=== PATIENT | male | born 1950 | race Caucasian/White ===

== ENCOUNTER 2018-07-16 09:58 | Inpatient (IN) | payer MEDICARE, OTHER ==
[2018-07-16] MEDS: ASPIRIN 81 MG TAB PO (10:21)
[2018-07-16 10:22] LABS: WHITE BLOOD COUNT 8.7 10^3/ul (4.8-10.8)
[2018-07-16 10:22] LABS: ADD MAN DIFF? NO; BASOPHILS % 0.1 % (0.0-2.0); EOSINOPHILS % 0.5 % (0.0-7.0); HEMATOCRIT 25.9 % (42.0-52.0); HEMOGLOBIN 8.1 g/dl (14.0-18.0); LYMPHOCYTES % 22.5 % (15.0-51.0); MEAN CORPUSCULAR HEMOGLOBIN 27.5 pg (29.0-33.0); MEAN CORPUSCULAR HGB CONC 31.3 g/dl (32.0-37.0); MEAN CORPUSCULAR VOLUME 87.8 fl (82.0-101.0); MEAN PLATELET VOLUME 9.6 fl (7.4-10.4); MONOCYTE # 0.4 10^3/ul (0.3-0.9); MONOCYTES % 4.3 % (0.0-11.0); NEUTROPHIL # 6.3 10^3/ul (1.6-7.5); PLATELET COUNT 249 10^3/UL (140-415); RED BLOOD COUNT 2.95 10^6/ul (4.70-6.10); RED CELL DISTRIBUTION WIDTH 13.9 % (11.5-14.5)
[2018-07-16 10:38] LABS: ANION GAP 13 (5-13); BLOOD UREA NITROGEN 80 mg/dl (7-20); CALCIUM 7.2 mg/dl (8.4-10.2); CARBON DIOXIDE 12 mmol/L (21-31); CHLORIDE 116 mmol/L (97-110); CREATININE 10.56 mg/dl (0.61-1.24); Estimated GFR 5 mL/min (>60); GLUCOSE 96 mg/dl (70-220); POTASSIUM 5.9 mmol/L (3.5-5.1); SODIUM 141 mmol/L (135-144)
[2018-07-16 10:42] LABS: AADO2 Arterial 43.9 mmHg (7.0-24.0); Arterial Base Excess -15.2 mmol/L (-3.0-3); Arterial Blood Gas Oxygen Sat 93.8 mmHG (95.0-98.0); Arterial Fraction of Oxyhgb 89.8 % (93.0-99.0); Arterial HCO3 10.3 mmol/L (22.0-26.0); Arterial MetHb 0.3 % (0.0-1.5); Arterial pCO2 23.1 mmhg (35-45); MODE ROOM AIR; Site Right Brachial
[2018-07-16 10:53] LABS: TROPONIN-I 0.126 ng/ml (0.000-0.120)
[2018-07-16] MEDS ORDERED: ONDANSETRON 4 MG INJ IV ×2 (11:00→14:00)
[2018-07-16] MEDS ORDERED: ACETAMINOPHEN 325 MG TAB PO ×2 (11:00→14:00)
[2018-07-16] MEDS: NA BICARBONATE 8.4% 50 ML SYG IV (11:19)
[2018-07-16] MEDS: INSULIN REGULAR, HUMAN 100 UNIT/1 ML 3ML VIAL IVP (11:21)
[2018-07-16] MEDS: NA POLYST SULFON 15 GM/60 ML BTL PO (11:21)
[2018-07-16] MEDS: DEXTROSE 50% 50 ML SYRINGE IV (11:23)
[2018-07-16] MEDS: ALBUTEROL 0.5% (NEB) 2.5 MG/0.5 ML AMP INH (11:40)
[2018-07-16] MEDS: HYDROCHLOROTHIAZIDE 25 MG TAB PO (13:56)
[2018-07-16] MEDS ORDERED: NACL 0.9% 3 ML SYG IV (14:00)
[2018-07-16] MEDS ORDERED: HYDROCHLOROTHIAZIDE 50 MG TAB PO (15:00)
[2018-07-16 15:06] LABS: ANION GAP 12 (5-13); BLOOD UREA NITROGEN 81 mg/dl (7-20); CALCIUM 6.9 mg/dl (8.4-10.2); CARBON DIOXIDE 15 mmol/L (21-31); CHLORIDE 115 mmol/L (97-110); CREATININE 10.29 mg/dl (0.61-1.24); Estimated GFR 5 mL/min (>60); GLUCOSE 88 mg/dl (70-220); POTASSIUM 5.4 mmol/L (3.5-5.1); SODIUM 142 mmol/L (135-144)
[2018-07-16 15:17] LABS: TROPONIN-I 0.114 ng/ml (0.000-0.120)
[2018-07-16] MEDS: FELODIPINE (ER) 5 MG TAB PO (15:37)
[2018-07-16 15:41] LABS: HAAIG REFLEX REFLEX FILED
[2018-07-16 16:35] LABS: RHEUMATOID FACTOR NEGATIVE (NEGATIVE)
[2018-07-16 16:37] LABS: IRON 56 ug/dl (35-150)
[2018-07-16 16:41] LABS: HEPATITIS B SURFACE ANTIGEN NEGATIVE (NEGATIVE)
[2018-07-16 16:45] LABS: CREATINE KINASE 453 IU/L (23-200)
[2018-07-16 16:47] LABS: % IRON SATURATION 22 % SAT (22-52); TOTAL IRON BINDING CAPACITY 252 ug/dl (241-421)
[2018-07-16 16:57] LABS: CK INDEX 0.8
[2018-07-16 16:59] LABS: HEPATITIS B CORE ANTIBODY REACTIVE (NEGATIVE); HEPATITIS C VIRAL ANTIBODY NEGATIVE (NEGATIVE)
[2018-07-16] MEDS ORDERED: LABETALOL HCL 20MG INJ IV (17:00)
[2018-07-16 17:05] LABS: CK-MB 3.72 ng/ml (0.0-2.4)
[2018-07-16] MEDS: HALOPERIDOL 5 MG INJ IV (17:21)
[2018-07-16 18:57] LABS: TROPONIN-I 0.124 ng/ml (0.000-0.120)
[2018-07-16 20:08] LABS: COMPLEMENT C3 97 mg/dl (88-165); COMPLEMENT C4 49 mg/dl (14-44)
[2018-07-17] MEDS ORDERED: INFLUENZA VIRUS VACCINE 0.5 ML (DISPENSING) IM* ×2 (07:00→09:00)
[2018-07-17] MEDS ORDERED: CALCITRIOL 0.25 MCG CAP PO (09:00)
[2018-07-17 12:27] LABS: ANA SCREEN NEGATIVE (NEGATIVE); MYELOPEROXIDASE ANTIBODY <1.0 AI; PROTEINASE-3 ANTIBODY <1.0 AI
[2018-07-17 13:12] LABS: ANCA SCREEN NEGATIVE (NEGATIVE)
[2018-07-18 16:32] LABS: ANTI-DNA (DOUBLE STRANDED) <95 U/mL (< 301)
[2018-07-18 21:08] LABS: PTH CALCIUM 6.8 mg/dL (8.6-10.3)
[2018-07-19 14:32] LABS: PTH INTACT 572 pg/mL (14-64)
== END 2018-07-16 20:28 | disposition left against medical advice (07) | DRG 684 ==
LOC: E/R 09:58 → TEL 10:58
DX: N17.9 Acute kidney failure, unspecified (principal); I10 Essential (primary) hypertension; E87.5 Hyperkalemia; R79.9 Abnormal finding of blood chemistry, unspecified
CPT/HCPCS: 36415; 36600; 71045; 76775; 80048; 82306; 82550; 82553; 82595; 82652; 82728; 82803; 82962; 83540; 83970; 84484; 85025; 86021; 86038; 86160; 86226; 86430; 86704; 86709; 86803; 86850; 86900; 86901; 87340; 90686; 93005; 94664; 96374; 96375; 99291-25

== ENCOUNTER 2018-07-20 10:16 | Inpatient (IN) | payer MEDICARE, OTHER ==
[2018-07-20] MEDS: ALBUTEROL 0.5% (NEB) 2.5 MG/0.5 ML AMP NEB (10:38)
[2018-07-20] MEDS: IPRATROPIUM (NEB) 0.5 MG/2.5 ML AMP NEB (10:38)
[2018-07-20 11:03] LABS: ADD MAN DIFF? NO; BASOPHILS % 0.1 % (0.0-2.0); HEMATOCRIT 23.6 % (42.0-52.0); HEMOGLOBIN 7.2 g/dl (14.0-18.0); LYMPHOCYTES # 1.1 10^3/ul (0.8-2.9); LYMPHOCYTES % 14.7 % (15.0-51.0); MEAN CORPUSCULAR HEMOGLOBIN 27.8 pg (29.0-33.0); MEAN CORPUSCULAR HGB CONC 30.5 g/dl (32.0-37.0); MEAN CORPUSCULAR VOLUME 91.1 fl (82.0-101.0); MEAN PLATELET VOLUME 10.6 fl (7.4-10.4); MONOCYTE # 0.3 10^3/ul (0.3-0.9); MONOCYTES % 4.5 % (0.0-11.0); NEUTROPHILS % 80.3 % (39.0-77.0); PLATELET COUNT 227 10^3/UL (140-415); RED BLOOD COUNT 2.59 10^6/ul (4.70-6.10); RED CELL DISTRIBUTION WIDTH 14.1 % (11.5-14.5)
[2018-07-20 11:03] LABS: WHITE BLOOD COUNT 7.5 10^3/ul (4.8-10.8)
[2018-07-20 11:21] LABS: AMMONIA < 9 umol/l (9-30)
[2018-07-20 11:22] LABS: ALANINE AMINOTRANSFERASE 19 IU/L (13-69); ALBUMIN/GLOBULIN RATIO 0.93; ALKALINE PHOSPHATASE 55 IU/L (42-121); AMYLASE 98 U/L (11-123); ANION GAP 16 (5-13); ASPARTATE AMINO TRANSFERASE 17 IU/L (15-46); BLOOD UREA NITROGEN 85 mg/dl (7-20); CALCIUM 6.3 mg/dl (8.4-10.2); CARBON DIOXIDE 13 mmol/L (21-31); CHLORIDE 115 mmol/L (97-110); CREATININE 10.21 mg/dl (0.61-1.24); Estimated GFR 5 mL/min (>60); GLUCOSE 138 mg/dl (70-220); LIPASE 346 U/L (23-300); SODIUM 144 mmol/L (135-144); TOTAL PROTEIN 6.2 g/dl (6.1-8.1)
[2018-07-20 11:23] LABS: INR 0.97
[2018-07-20 11:24] LABS: PARTIAL THROMBOPLASTIN TIME 34.6 Sec (23.0-35.0)
[2018-07-20 11:25] LABS: POTASSIUM 5.3 mmol/L (3.5-5.1)
[2018-07-20 11:34] LABS: TROPONIN-I 0.118 ng/ml (0.000-0.120)
[2018-07-20 11:53] LABS: B-TYPE NATRIURETIC PEPTIDE 65200 PG/ML (0-125)
[2018-07-20] MEDS: PIPER-TAZO 3.375 GM IV (PMX) 100 ML IVPB (13:00)
[2018-07-20 13:28] LABS: IRON 51 ug/dl (35-150)
[2018-07-20 13:28] LABS: LACTATE DEHYDROGENASE 605 IU/L (313-618)
[2018-07-20] MEDS ORDERED: ACETAMINOPHEN 325 MG TAB PO ×2 (13:30→14:00)
[2018-07-20] MEDS ORDERED: ONDANSETRON 4 MG INJ IV ×2 (13:30→14:00)
[2018-07-20 13:37] LABS: % IRON SATURATION 22 % SAT (22-52); TOTAL IRON BINDING CAPACITY 235 ug/dl (241-421)
[2018-07-20] MEDS ORDERED: NACL 0.9% 3 ML SYG IV (14:00)
[2018-07-20] MEDS: NA BICARBONATE 8.4% 50 ML SYG IV (14:24)
[2018-07-20] MEDS: NA POLYST SULFON 15 GM/60 ML BTL PO (14:24)
[2018-07-20] MEDS: CA CHLORIDE 10% 10 ML SYRINGE IV (14:24)
[2018-07-20] MEDS: VANCOMYCIN 1 GM (PMX) 250 ML IVPB (14:25)
[2018-07-20] MEDS ORDERED: HYDROCHLOROTHIAZIDE 50 MG TAB PO (14:30)
[2018-07-20] MEDS: ALBUTEROL 0.5% (NEB) 2.5 MG/0.5 ML AMP INH (14:55)
[2018-07-20] MEDS: FELODIPINE (ER) 10 MG TAB PO (15:19)
[2018-07-20] MEDS: HYDROCHLOROTHIAZIDE 25 MG TAB PO (15:20)
[2018-07-20] MEDS ORDERED: LIDOCAINE 1% (MDV) 20 ML INJ (16:35)
[2018-07-20] MEDS ORDERED: MIDAZOLAM 1 MG/ML 2 ML INJ (16:35)
[2018-07-20] MEDS ORDERED: FENTAnyl 50 MCG/ML VIAL (16:35)
[2018-07-20] MEDS ORDERED: HEPARIN 1000 UNITS/ML 10 ML INJ (16:45)
[2018-07-20] MEDS: HEPARIN 1000 UNITS/ML 10 ML INJ CATHETER (23:11)
[2018-07-21] MEDS: PANTOPRAZOLE (EC) 40 MG TAB PO (05:19)
[2018-07-21 05:26] LABS: WHITE BLOOD COUNT 7.4 10^3/ul (4.8-10.8)
[2018-07-21 05:26] LABS: ABNORMAL IP MESSAGE 1; HEMATOCRIT 19.7 % (42.0-52.0); MEAN CORPUSCULAR HEMOGLOBIN 27.9 pg (29.0-33.0); MEAN CORPUSCULAR HGB CONC 32.5 g/dl (32.0-37.0); MEAN PLATELET VOLUME 10.5 fl (7.4-10.4); PLATELET COUNT 220 10^3/UL (140-415); POSITIVE DIFF @See below; RED BLOOD COUNT 2.29 10^6/ul (4.70-6.10); RED CELL DISTRIBUTION WIDTH 13.9 % (11.5-14.5)
[2018-07-21 05:36] LABS: ADD MAN DIFF? YES; HEMOGLOBIN 6.4 g/dl (14.0-18.0)
[2018-07-21 05:38] LABS: HEMOGLOBIN A1C 5.2 % (0-5.9)
[2018-07-21 05:59] LABS: ALANINE AMINOTRANSFERASE 19 IU/L (13-69); ALBUMIN 2.6 g/dl (3.3-4.9); ALBUMIN/GLOBULIN RATIO 0.96; ALKALINE PHOSPHATASE 45 IU/L (42-121); ANION GAP 12 (5-13); ASPARTATE AMINO TRANSFERASE 14 IU/L (15-46); BILIRUBIN,INDIRECT 0.2 mg/dl (0-1.1); BILIRUBIN,TOTAL 0.2 mg/dl (0.2-1.3); BLOOD UREA NITROGEN 62 mg/dl (7-20); CALCIUM 6.6 mg/dl (8.4-10.2); CARBON DIOXIDE 24 mmol/L (21-31); CHLORIDE 107 mmol/L (97-110); Estimated GFR 7 mL/min (>60); GLUCOSE 98 mg/dl (70-220); MAGNESIUM 1.2 mg/dl (1.7-2.5); PHOSPHORUS 5.9 mg/dl (2.5-4.9); POTASSIUM 3.8 mmol/L (3.5-5.1); SODIUM 143 mmol/L (135-144); TOTAL PROTEIN 5.3 g/dl (6.1-8.1)
[2018-07-21 06:21] LABS: IMMEDIATE SPIN CROSSMATCH 1 1
[2018-07-21 08:13] LABS: ANISOCYTOSIS 2+ (0-0); BURR CELLS 1+ (0-0); LYMPHOCYTES #M 1.2 10^3/ul (0.8-2.9); LYMPHOCYTES % (M) 17 % (15-51); MICROCYTOSIS 1+ (0-0); MONOCYTE #M 0.1 10^3/ul (0.3-0.9); MONOCYTES % (M) 2 % (0-11); OVALOCYTES 2+ (0-0); PLATELET ESTIMATE NORMAL; POIKILOCYTOSIS 2+ (0-0); POLYCHROMASIA 1+ (0-0); SCHISTOCYTES 1+ (0-0); SEGMENTED NEUTROPHILS (M) % 81 % (39-77); SMUDGE%M 5 % (0-0)
[2018-07-21] MEDS: MULTIVIT/CA CARB/B CMPLX/FA TAB PO (08:40)
[2018-07-21] MEDS: CHOLECALCIFEROL 1,000 UNIT TAB PO (08:40)
[2018-07-21] MEDS: CALCITRIOL 0.25 MCG CAP PO (10:46)
[2018-07-21] MEDS: EPOETIN 10000 UNITS/1 ML INJ (ESRD) SC (10:47)
[2018-07-21 11:01] LABS: TRANSFERRIN 160 mg/dL (188-341)
[2018-07-21] MEDS: SEVELAMER CARBONATE 800 MG TABLET PO ×2 (11:41→18:30)
[2018-07-21] MEDS: FELODIPINE (ER) 5 MG TAB PO (12:04)
[2018-07-21 12:05] LABS: ADD MAN DIFF? NO
[2018-07-21 12:13] LABS: BASOPHILS % 0.3 % (0.0-2.0); EOSINOPHILS % 0.5 % (0.0-7.0); HEMATOCRIT 24.6 % (42.0-52.0); HEMOGLOBIN 7.8 g/dl (14.0-18.0); LYMPHOCYTES % 12.3 % (15.0-51.0); MEAN CORPUSCULAR HEMOGLOBIN 27.3 pg (29.0-33.0); MEAN CORPUSCULAR HGB CONC 31.7 g/dl (32.0-37.0); MEAN PLATELET VOLUME 10.2 fl (7.4-10.4); MONOCYTE # 0.5 10^3/ul (0.3-0.9); MONOCYTES % 6.4 % (0.0-11.0); NEUTROPHIL # 6.4 10^3/ul (1.6-7.5); NEUTROPHILS % 80.1 % (39.0-77.0); PLATELET COUNT 208 10^3/UL (140-415); RED BLOOD COUNT 2.86 10^6/ul (4.70-6.10); RED CELL DISTRIBUTION WIDTH 14.6 % (11.5-14.5)
[2018-07-21] MEDS: MAGNESIUM SULFATE 2 GM/50 ML 50 ML IVPB (16:00)
[2018-07-22 05:25] LABS: ADD MAN DIFF? NO
[2018-07-22 05:31] LABS: BASOPHILS % 0.2 % (0.0-2.0); EOSINOPHILS % 0.5 % (0.0-7.0); HEMOGLOBIN 7.8 g/dl (14.0-18.0); LYMPHOCYTES # 1.5 10^3/ul (0.8-2.9); LYMPHOCYTES % 18.3 % (15.0-51.0); MEAN CORPUSCULAR HEMOGLOBIN 27.5 pg (29.0-33.0); MEAN CORPUSCULAR HGB CONC 32.5 g/dl (32.0-37.0); MEAN CORPUSCULAR VOLUME 84.5 fl (82.0-101.0); MEAN PLATELET VOLUME 10.1 fl (7.4-10.4); MONOCYTE # 0.7 10^3/ul (0.3-0.9); MONOCYTES % 8.1 % (0.0-11.0); NEUTROPHIL # 5.9 10^3/ul (1.6-7.5); NEUTROPHILS % 72.5 % (39.0-77.0); PLATELET COUNT 211 10^3/UL (140-415); RED BLOOD COUNT 2.84 10^6/ul (4.70-6.10); RED CELL DISTRIBUTION WIDTH 15.3 % (11.5-14.5)
[2018-07-22 05:31] LABS: WHITE BLOOD COUNT 8.1 10^3/ul (4.8-10.8)
[2018-07-22 05:51] LABS: ANION GAP 10 (5-13); BLOOD UREA NITROGEN 41 mg/dl (7-20); CALCIUM 6.9 mg/dl (8.4-10.2); CARBON DIOXIDE 28 mmol/L (21-31); CHLORIDE 103 mmol/L (97-110); CREATININE 5.69 mg/dl (0.61-1.24); Estimated GFR 10 mL/min (>60); GLUCOSE 89 mg/dl (70-220); MAGNESIUM 1.3 mg/dl (1.7-2.5); PHOSPHORUS 4.9 mg/dl (2.5-4.9); POTASSIUM 4.6 mmol/L (3.5-5.1); SODIUM 141 mmol/L (135-144)
[2018-07-22] MEDS: PANTOPRAZOLE (EC) 40 MG TAB PO (06:01)
[2018-07-22 06:44] LABS: HEPATITIS B SURFACE ANTIBODY NEGATIVE (NEGATIVE)
[2018-07-22 07:03] LABS: HEPATITIS C VIRAL ANTIBODY NEGATIVE (NEGATIVE)
[2018-07-22 07:03] LABS: HEPATITIS B SURFACE ANTIGEN NEGATIVE (NEGATIVE)
[2018-07-22] MEDS: CHOLECALCIFEROL 1,000 UNIT TAB PO (08:17)
[2018-07-22] MEDS: SEVELAMER CARBONATE 800 MG TABLET PO ×3 (08:17→16:53)
[2018-07-22] MEDS: MULTIVIT/CA CARB/B CMPLX/FA TAB PO (08:17)
[2018-07-22] MEDS: CALCITRIOL 0.25 MCG CAP PO (08:18)
[2018-07-22] MEDS: FELODIPINE (ER) 5 MG TAB PO (08:18)
[2018-07-22] MEDS ORDERED: MAGNESIUM SULFATE 2 GM/50 ML 50 ML IVPB (09:00)
[2018-07-22] MEDS: MAGNESIUM SULFATE 2 GM/50 ML 50 ML IVPB (10:00)
[2018-07-22] MEDS: HEPARIN 1000 UNITS/ML 10 ML INJ CATHETER (15:02)
[2018-07-22] MEDS: HALOPERIDOL 5 MG INJ IM (21:21)
[2018-07-23] MEDS: PANTOPRAZOLE (EC) 40 MG TAB PO (05:14)
[2018-07-23 06:21] LABS: ADD MAN DIFF? NO
[2018-07-23 06:35] LABS: BASOPHILS % 0.2 % (0.0-2.0); EOSINOPHILS # 0.1 10^3/ul (0.0-0.5); EOSINOPHILS % 0.8 % (0.0-7.0); HEMATOCRIT 26.7 % (42.0-52.0); HEMOGLOBIN 8.4 g/dl (14.0-18.0); LYMPHOCYTES # 1.6 10^3/ul (0.8-2.9); LYMPHOCYTES % 17.4 % (15.0-51.0); MEAN CORPUSCULAR HEMOGLOBIN 27.1 pg (29.0-33.0); MEAN CORPUSCULAR HGB CONC 31.5 g/dl (32.0-37.0); MEAN CORPUSCULAR VOLUME 86.1 fl (82.0-101.0); MEAN PLATELET VOLUME 10.6 fl (7.4-10.4); MONOCYTE # 0.7 10^3/ul (0.3-0.9); MONOCYTES % 8.1 % (0.0-11.0); NEUTROPHIL # 6.5 10^3/ul (1.6-7.5); NEUTROPHILS % 72.9 % (39.0-77.0); PLATELET COUNT 231 10^3/UL (140-415); RED CELL DISTRIBUTION WIDTH 14.9 % (11.5-14.5)
[2018-07-23 06:35] LABS: WHITE BLOOD COUNT 8.9 10^3/ul (4.8-10.8)
[2018-07-23 07:04] LABS: ANION GAP 11 (5-13); BLOOD UREA NITROGEN 30 mg/dl (7-20); CALCIUM 7.3 mg/dl (8.4-10.2); CARBON DIOXIDE 28 mmol/L (21-31); CHLORIDE 100 mmol/L (97-110); CREATININE 4.84 mg/dl (0.61-1.24); Estimated GFR 12 mL/min (>60); GLUCOSE 90 mg/dl (70-220); MAGNESIUM 1.8 mg/dl (1.7-2.5); PHOSPHORUS 4.5 mg/dl (2.5-4.9); POTASSIUM 4.3 mmol/L (3.5-5.1); SODIUM 139 mmol/L (135-144)
[2018-07-23] MEDS: SEVELAMER CARBONATE 800 MG TABLET PO ×2 (08:00→18:34)
[2018-07-23] MEDS: MULTIVIT/CA CARB/B CMPLX/FA TAB PO (08:34)
[2018-07-23] MEDS: CALCITRIOL 0.25 MCG CAP PO (08:34)
[2018-07-23] MEDS: FELODIPINE (ER) 5 MG TAB PO (08:34)
[2018-07-23] MEDS: CHOLECALCIFEROL 1,000 UNIT TAB PO (13:50)
[2018-07-23] MEDS: EPOETIN 4000 UNITS/1 ML INJ (ESRD) SC (17:00)
[2018-07-23 19:16] LABS: PTH CALCIUM 6.6 mg/dL (8.6-10.3)
[2018-07-24] MEDS: PANTOPRAZOLE (EC) 40 MG TAB PO (05:40)
[2018-07-24 05:52] LABS: ADD MAN DIFF? NO
[2018-07-24 05:59] LABS: BASOPHILS % 0.3 % (0.0-2.0); EOSINOPHILS # 0.1 10^3/ul (0.0-0.5); EOSINOPHILS % 1.2 % (0.0-7.0); HEMATOCRIT 27.5 % (42.0-52.0); HEMOGLOBIN 8.6 g/dl (14.0-18.0); LYMPHOCYTES # 1.7 10^3/ul (0.8-2.9); LYMPHOCYTES % 15.7 % (15.0-51.0); MEAN CORPUSCULAR HEMOGLOBIN 27.7 pg (29.0-33.0); MEAN CORPUSCULAR HGB CONC 31.3 g/dl (32.0-37.0); MEAN CORPUSCULAR VOLUME 88.4 fl (82.0-101.0); MEAN PLATELET VOLUME 10.2 fl (7.4-10.4); MONOCYTES % 8.8 % (0.0-11.0); NEUTROPHIL # 8.1 10^3/ul (1.6-7.5); NEUTROPHILS % 73.1 % (39.0-77.0); PLATELET COUNT 233 10^3/UL (140-415); RED BLOOD COUNT 3.11 10^6/ul (4.70-6.10); RED CELL DISTRIBUTION WIDTH 14.7 % (11.5-14.5)
[2018-07-24 06:27] LABS: ANION GAP 12 (5-13); BLOOD UREA NITROGEN 49 mg/dl (7-20); CALCIUM 7.7 mg/dl (8.4-10.2); CARBON DIOXIDE 25 mmol/L (21-31); CHLORIDE 104 mmol/L (97-110); CREATININE 6.62 mg/dl (0.61-1.24); Estimated GFR 8 mL/min (>60); GLUCOSE 90 mg/dl (70-220); POTASSIUM 4.9 mmol/L (3.5-5.1); SODIUM 141 mmol/L (135-144)
[2018-07-24] MEDS: FELODIPINE (ER) 5 MG TAB PO (08:21)
[2018-07-24] MEDS: MULTIVIT/CA CARB/B CMPLX/FA TAB PO (08:21)
[2018-07-24] MEDS: CALCITRIOL 0.25 MCG CAP PO (08:21)
[2018-07-24] MEDS: SEVELAMER CARBONATE 800 MG TABLET PO ×3 (08:23→17:02)
[2018-07-24 11:46] LABS: PTH INTACT 301 pg/mL (14-64)
[2018-07-24] MEDS ORDERED: HEPARIN 1000 UNITS/ML 10 ML INJ (12:20)
[2018-07-24] MEDS: ALTEPLASE (CATHFLO) 2 MG INJ CATHETER (13:14)
[2018-07-24] MEDS: CHOLECALCIFEROL 1,000 UNIT TAB PO (13:57)
[2018-07-25 02:22] LABS: PTH CALCIUM 6.8 mg/dL (8.6-10.3)
[2018-07-25] MEDS: PANTOPRAZOLE (EC) 40 MG TAB PO (06:00)
[2018-07-25 07:39] LABS: ADD MAN DIFF? NO
[2018-07-25 07:46] LABS: WHITE BLOOD COUNT 9.8 10^3/ul (4.8-10.8)
[2018-07-25 07:46] LABS: BASOPHILS % 0.3 % (0.0-2.0); EOSINOPHILS # 0.1 10^3/ul (0.0-0.5); EOSINOPHILS % 1.1 % (0.0-7.0); HEMATOCRIT 24.5 % (42.0-52.0); HEMOGLOBIN 7.7 g/dl (14.0-18.0); LYMPHOCYTES # 1.4 10^3/ul (0.8-2.9); LYMPHOCYTES % 14.2 % (15.0-51.0); MEAN CORPUSCULAR HEMOGLOBIN 27.5 pg (29.0-33.0); MEAN CORPUSCULAR HGB CONC 31.4 g/dl (32.0-37.0); MEAN CORPUSCULAR VOLUME 87.5 fl (82.0-101.0); MEAN PLATELET VOLUME 10.5 fl (7.4-10.4); MONOCYTE # 1.1 10^3/ul (0.3-0.9); MONOCYTES % 11.2 % (0.0-11.0); NEUTROPHIL # 7.1 10^3/ul (1.6-7.5); NEUTROPHILS % 72.3 % (39.0-77.0); PLATELET COUNT 229 10^3/UL (140-415); RED CELL DISTRIBUTION WIDTH 14.5 % (11.5-14.5)
[2018-07-25 08:12] LABS: ANION GAP 10 (5-13); BLOOD UREA NITROGEN 49 mg/dl (7-20); CALCIUM 7.7 mg/dl (8.4-10.2); CARBON DIOXIDE 23 mmol/L (21-31); CHLORIDE 105 mmol/L (97-110); Estimated GFR 9 mL/min (>60); GLUCOSE 88 mg/dl (70-220); SODIUM 138 mmol/L (135-144)
[2018-07-25 08:14] LABS: POTASSIUM 4.4 mmol/L (3.5-5.1)
[2018-07-25] MEDS: MULTIVIT/CA CARB/B CMPLX/FA TAB PO (09:08)
[2018-07-25] MEDS: FELODIPINE (ER) 5 MG TAB PO (09:08)
[2018-07-25] MEDS: LISINOPRIL 20 MG TAB PO (09:08)
[2018-07-25] MEDS: CALCITRIOL 0.25 MCG CAP PO (09:08)
[2018-07-25] MEDS: SEVELAMER CARBONATE 800 MG TABLET PO ×2 (09:08→13:13)
[2018-07-25] MEDS: CHOLECALCIFEROL 1,000 UNIT TAB PO (09:09)
[2018-07-25 09:21] LABS: PTH INTACT 504 pg/mL (14-64)
[2018-07-25] MEDS ORDERED: HEPARIN 1000 UNITS/NS (A-LINE) 1,000 ML (10:27)
[2018-07-25] MEDS ORDERED: HEPARIN 1000 UNITS/ML 10 ML INJ (10:27)
[2018-07-25] MEDS ORDERED: LIDOCAINE 1% (MDV) 20 ML INJ (10:27)
[2018-07-25] MEDS ORDERED: MIDAZOLAM 1 MG/ML 2 ML INJ (10:51)
[2018-07-25] MEDS ORDERED: FENTAnyl 50 MCG/ML VIAL (10:51)
== END 2018-07-25 15:56 | disposition home or self-care (01) | DRG 673 ==
LOC: 5EC 07-22 23:59 → E/R 10:16 → 6WM 13:19
PROC: 0JH63XZ Insertion of Tunneled Vascular Access Device into Chest Subcutaneous Tissue and Fascia, Percutaneous Approach (ICD-10-PCS; principal; 2018-07-20 16:30)
PROC: 02H633Z Insertion of Infusion Device into Right Atrium, Percutaneous Approach (ICD-10-PCS; 2018-07-20 16:30)
PROC: B214YZZ Fluoroscopy of Right Heart using Other Contrast (ICD-10-PCS; 2018-07-20 16:30)
PROC: 5A1D70Z Performance of Urinary Filtration, Intermittent, Less than 6 Hours Per Day (ICD-10-PCS; 2018-07-20 16:30)
PROC: 02H633Z Insertion of Infusion Device into Right Atrium, Percutaneous Approach (ICD-10-PCS; 2018-07-20 16:30)
PROC: 02PA33Z Removal of Infusion Device from Heart, Percutaneous Approach (ICD-10-PCS; 2018-07-20 16:30)
PROC: B214YZZ Fluoroscopy of Right Heart using Other Contrast (ICD-10-PCS; 2018-07-20 16:30)
PROC: 30233N1 Transfusion of Nonautologous Red Blood Cells into Peripheral Vein, Percutaneous Approach (ICD-10-PCS; 2018-07-20 16:30)
DX: I12.0 Hypertensive chronic kidney disease with stage 5 chronic kidney disease or end stage renal disease (principal); N18.6 End stage renal disease; I24.8 Other forms of acute ischemic heart disease; N17.9 Acute kidney failure, unspecified; E87.2 Acidosis; D63.1 Anemia in chronic kidney disease; E87.5 Hyperkalemia; E87.70 Fluid overload, unspecified; R06.02 Shortness of breath; Z99.2 Dependence on renal dialysis
CPT/HCPCS: 36430; 70450; 71045; 80048; 80053; 82140; 82150; 82306; 82728; 83036; 83540; 83605; 83615; 83690; 83735; 83880; 83970; 84100; 84466; 84484; 85025; 85610; 85730; 86706; 86803; 86850; 86900; 86901; 86920; 87040; 87086; 87340; 90935; 93005; 94640; 94664; 96374; 99291-25

== ENCOUNTER 2018-08-04 11:44 | Inpatient (IN) | payer MEDICARE, OTHER ==
[2018-08-04] MEDS: hydrALAzine 20 MG INJ IV ×2 (12:27→14:30)
[2018-08-04 12:33] LABS: ADD MAN DIFF? NO
[2018-08-04 12:36] LABS: BASOPHILS % 0.2 % (0.0-2.0); EOSINOPHILS % 0.1 % (0.0-7.0); HEMATOCRIT 23.9 % (42.0-52.0); HEMOGLOBIN 7.4 g/dl (14.0-18.0); LYMPHOCYTES # 1.4 10^3/ul (0.8-2.9); LYMPHOCYTES % 14.9 % (15.0-51.0); MEAN CORPUSCULAR HEMOGLOBIN 27.4 pg (29.0-33.0); MEAN CORPUSCULAR VOLUME 88.5 fl (82.0-101.0); MEAN PLATELET VOLUME 9.9 fl (7.4-10.4); MONOCYTE # 0.6 10^3/ul (0.3-0.9); MONOCYTES % 6.6 % (0.0-11.0); NEUTROPHIL # 7.1 10^3/ul (1.6-7.5); NEUTROPHILS % 77.2 % (39.0-77.0); PLATELET COUNT 123 10^3/UL (140-415); RED CELL DISTRIBUTION WIDTH 14.7 % (11.5-14.5)
[2018-08-04 12:36] LABS: WHITE BLOOD COUNT 9.2 10^3/ul (4.8-10.8)
[2018-08-04 12:59] LABS: INR 1.05; PROTIME 13.8 Sec (11.9-14.9); PT RATIO 1.1
[2018-08-04 13:00] LABS: PARTIAL THROMBOPLASTIN TIME 33.3 Sec (23.0-35.0)
[2018-08-04 13:01] LABS: ANION GAP 17 (5-13); BLOOD UREA NITROGEN 49 mg/dl (7-20); CALCIUM 7.6 mg/dl (8.4-10.2); CARBON DIOXIDE 23 mmol/L (21-31); CHLORIDE 105 mmol/L (97-110); CREATININE 8.04 mg/dl (0.61-1.24); Estimated GFR 7 mL/min (>60); GLUCOSE 133 mg/dl (70-220); POTASSIUM 5.6 mmol/L (3.5-5.1); SODIUM 145 mmol/L (135-144)
[2018-08-04] MEDS ORDERED: ONDANSETRON 4 MG INJ IV (14:30)
[2018-08-04] MEDS ORDERED: ACETAMINOPHEN 325 MG TAB PO (14:30)
[2018-08-04] MEDS ORDERED: NACL 0.9% 3 ML SYG IV (15:30)
[2018-08-04] MEDS: SEVELAMER CARBONATE 0.8 GM PKT PO (17:10)
[2018-08-04] MEDS: LISINOPRIL 20 MG TAB PO (17:11)
[2018-08-04] MEDS: EPOETIN 10000 UNITS/1 ML INJ (ESRD) SC (18:46)
[2018-08-04] MEDS: FELODIPINE (ER) 5 MG TAB PO (18:47)
[2018-08-04 19:44] LABS: CREATINE KINASE 153 IU/L (23-200)
[2018-08-04 19:55] LABS: CK INDEX 1.3; CK-MB 1.95 ng/ml (0.0-2.4); TROPONIN-I 0.067 ng/ml (0.000-0.120)
[2018-08-04 21:27] LABS: HEPATITIS B SURFACE ANTIGEN NEGATIVE (NEGATIVE)
[2018-08-05] MEDS: HEPARIN 1000 UNITS/ML 10 ML INJ CATHETER (00:28)
[2018-08-05 00:55] LABS: CREATINE KINASE 148 IU/L (23-200)
[2018-08-05 01:09] LABS: CK INDEX 1.3; CK-MB 1.94 ng/ml (0.0-2.4); TROPONIN-I 0.074 ng/ml (0.000-0.120)
[2018-08-05] MEDS: PANTOPRAZOLE (EC) 40 MG TAB PO (06:36)
[2018-08-05 06:50] LABS: ADD MAN DIFF? NO
[2018-08-05 06:55] LABS: WHITE BLOOD COUNT 12.3 10^3/ul (4.8-10.8)
[2018-08-05 06:55] LABS: BASOPHILS % 0.3 % (0.0-2.0); EOSINOPHILS % 0.2 % (0.0-7.0); HEMATOCRIT 26.2 % (42.0-52.0); HEMOGLOBIN 8.1 g/dl (14.0-18.0); LYMPHOCYTES # 2.2 10^3/ul (0.8-2.9); LYMPHOCYTES % 17.9 % (15.0-51.0); MEAN CORPUSCULAR HEMOGLOBIN 27.1 pg (29.0-33.0); MEAN CORPUSCULAR HGB CONC 30.9 g/dl (32.0-37.0); MEAN CORPUSCULAR VOLUME 87.6 fl (82.0-101.0); MEAN PLATELET VOLUME 10.3 fl (7.4-10.4); MONOCYTE # 0.8 10^3/ul (0.3-0.9); MONOCYTES % 6.7 % (0.0-11.0); NEUTROPHIL # 9.1 10^3/ul (1.6-7.5); NEUTROPHILS % 74.2 % (39.0-77.0); PLATELET COUNT 149 10^3/UL (140-415); RED BLOOD COUNT 2.99 10^6/ul (4.70-6.10); RED CELL DISTRIBUTION WIDTH 14.6 % (11.5-14.5)
[2018-08-05 07:03] LABS: HEMOGLOBIN A1C 4.8 % (0-5.9)
[2018-08-05 07:13] LABS: IRON 42 ug/dl (35-150)
[2018-08-05 07:17] LABS: ANION GAP 15 (5-13); BLOOD UREA NITROGEN 25 mg/dl (7-20); CALCIUM 8.3 mg/dl (8.4-10.2); CARBON DIOXIDE 25 mmol/L (21-31); CHLORIDE 102 mmol/L (97-110); CREATININE 5.19 mg/dl (0.61-1.24); Estimated GFR 11 mL/min (>60); GLUCOSE 91 mg/dl (70-220); MAGNESIUM 1.7 mg/dl (1.7-2.5); POTASSIUM 4.9 mmol/L (3.5-5.1); SODIUM 142 mmol/L (135-144)
[2018-08-05 07:22] LABS: % IRON SATURATION 14 % SAT (22-52); TOTAL IRON BINDING CAPACITY 291 ug/dl (241-421)
[2018-08-05] MEDS: SEVELAMER CARBONATE 0.8 GM PKT PO ×2 (08:17→12:39)
[2018-08-05] MEDS: MULTIVIT/CA CARB/B CMPLX/FA TAB PO (08:18)
[2018-08-05] MEDS: CHOLECALCIFEROL 1,000 UNIT TAB PO (08:18)
[2018-08-05] MEDS: FELODIPINE (ER) 5 MG TAB PO (08:18)
[2018-08-05] MEDS: LISINOPRIL 20 MG TAB PO (08:20)
[2018-08-05] MEDS: SOD FERRIC GLUC COMPLX 125 MG in SOD CHLORIDE 0.9% 100 ML IVPB (12:39)
== END 2018-08-05 15:15 | disposition home or self-care (01) | DRG 682 ==
LOC: E/R 11:44 → TEL 14:06
PROVIDERS: Internal Medicine
DX: I12.0 Hypertensive chronic kidney disease with stage 5 chronic kidney disease or end stage renal disease (principal); N18.6 End stage renal disease; J96.01 Acute respiratory failure with hypoxia; E87.5 Hyperkalemia; Z99.2 Dependence on renal dialysis; I16.0 Hypertensive urgency; D64.9 Anemia, unspecified; D63.1 Anemia in chronic kidney disease
CPT/HCPCS: 36415; 71045; 80048; 82550; 82553; 82728; 83036; 83540; 83735; 84100; 84484; 85025; 85610; 85730; 87340; 90935; 93005; 96374; 99285-25

== ENCOUNTER → 2018-08-21 | Outpatient (CLI) | payer MEDICARE, OTHER | END | disposition home or self-care (01) | LOC: RAD 12:02 | DX: R06.02 Shortness of breath (principal) | CPT/HCPCS: 71046 ==

== ENCOUNTER 2018-09-09 04:48 | Observation (INO) | payer MEDICARE, OTHER ==
[2018-09-09 05:18] LABS: ADD MAN DIFF? NO
[2018-09-09 05:31] LABS: WHITE BLOOD COUNT 8.4 10^3/ul (4.8-10.8)
[2018-09-09 05:31] LABS: BASOPHILS % 0.5 % (0.0-2.0); EOSINOPHILS # 0.1 10^3/ul (0.0-0.5); EOSINOPHILS % 0.6 % (0.0-7.0); HEMATOCRIT 27.9 % (42.0-52.0); HEMOGLOBIN 8.4 g/dl (14.0-18.0); LYMPHOCYTES % 23.5 % (15.0-51.0); MEAN CORPUSCULAR HEMOGLOBIN 25.6 pg (29.0-33.0); MEAN CORPUSCULAR HGB CONC 30.1 g/dl (32.0-37.0); MEAN CORPUSCULAR VOLUME 85.1 fl (82.0-101.0); MEAN PLATELET VOLUME 11.5 fl (7.4-10.4); MONOCYTE # 0.7 10^3/ul (0.3-0.9); MONOCYTES % 8.6 % (0.0-11.0); NEUTROPHIL # 5.6 10^3/ul (1.6-7.5); NEUTROPHILS % 66.2 % (39.0-77.0); PLATELET COUNT 259 10^3/UL (140-415); RED BLOOD COUNT 3.28 10^6/ul (4.70-6.10); RED CELL DISTRIBUTION WIDTH 14.6 % (11.5-14.5)
[2018-09-09 05:42] LABS: MODE ROOM AIR; MetHgb Venous 0.5 %; Sample Type Blood venous; Site OTHER; Venous COHb 0.3 %; Venous Fraction OxyHgb 47.2 %; Venous Oxygen Sat 47.6 mmHG (55.0-75.0); Venous Total Hemglobin 8.9 g/dl
[2018-09-09 05:43] LABS: ANION GAP 13 (5-13); BLOOD UREA NITROGEN 52 mg/dl (7-20); CALCIUM 8.8 mg/dl (8.4-10.2); CARBON DIOXIDE 23 mmol/L (21-31); CHLORIDE 106 mmol/L (97-110); CREATININE 8.14 mg/dl (0.61-1.24); Estimated GFR 7 mL/min (>60); GLUCOSE 89 mg/dl (70-220); SODIUM 142 mmol/L (135-144)
[2018-09-09 05:55] LABS: TROPONIN-I 0.036 ng/ml (0.000-0.120)
[2018-09-09] MEDS ORDERED: HYDROCODONE/APAP (5/325) TAB PO (08:30)
[2018-09-09] MEDS ORDERED: ONDANSETRON 4 MG INJ IV ×2 (08:30)
[2018-09-09] MEDS ORDERED: NACL 0.9% 3 ML SYG IV (08:30)
[2018-09-09] MEDS ORDERED: ACETAMINOPHEN 325 MG TAB PO (08:30)
[2018-09-09] MEDS ORDERED: hydrALAzine 20 MG INJ IV (08:30)
[2018-09-09] MEDS: CALCITRIOL 0.25 MCG CAP PO (09:00)
[2018-09-09] MEDS: FELODIPINE (ER) 5 MG TAB PO (09:00)
[2018-09-09] MEDS ORDERED: ALBUTEROL/IPRATROPIUM (NEB) 3 ML AMP HHN (11:30)
[2018-09-09] MEDS: MULTIVIT/CA CARB/B CMPLX/FA TAB PO (12:14)
[2018-09-09] MEDS: CHOLECALCIFEROL 1,000 UNIT TAB PO (12:15)
[2018-09-09] MEDS: LISINOPRIL 20 MG TAB PO (12:15)
[2018-09-09] MEDS: SEVELAMER CARBONATE 0.8 GM PKT PO ×2 (12:15→17:31)
[2018-09-09] MEDS: ALBUTEROL/IPRATROPIUM (NEB) 3 ML AMP HHN ×2 (14:00→20:00)
[2018-09-09] MEDS: ACETAMINOPHEN 325 MG TAB PO (18:15)
[2018-09-10] MEDS: PANTOPRAZOLE (EC) 40 MG TAB PO (05:54)
[2018-09-10 05:56] LABS: ADD MAN DIFF? NO
[2018-09-10 06:04] LABS: WHITE BLOOD COUNT 11.1 10^3/ul (4.8-10.8)
[2018-09-10 06:04] LABS: BASOPHILS % 0.4 % (0.0-2.0); EOSINOPHILS % 0.4 % (0.0-7.0); HEMATOCRIT 26.6 % (42.0-52.0); LYMPHOCYTES # 2.6 10^3/ul (0.8-2.9); MEAN CORPUSCULAR HGB CONC 30.1 g/dl (32.0-37.0); MEAN CORPUSCULAR VOLUME 83.1 fl (82.0-101.0); MEAN PLATELET VOLUME 10.8 fl (7.4-10.4); MONOCYTE # 0.8 10^3/ul (0.3-0.9); MONOCYTES % 6.9 % (0.0-11.0); NEUTROPHIL # 7.7 10^3/ul (1.6-7.5); PLATELET COUNT 332 10^3/UL (140-415); RED CELL DISTRIBUTION WIDTH 14.8 % (11.5-14.5)
[2018-09-10 06:26] LABS: HEMOGLOBIN A1C 4.9 % (0-5.9)
[2018-09-10 06:47] LABS: ANION GAP 16 (5-13); BLOOD UREA NITROGEN 71 mg/dl (7-20); CALCIUM 8.8 mg/dl (8.4-10.2); CARBON DIOXIDE 19 mmol/L (21-31); CHLORIDE 106 mmol/L (97-110); CREATININE 9.86 mg/dl (0.61-1.24); Estimated GFR 5 mL/min (>60); GLUCOSE 85 mg/dl (70-220); PHOSPHORUS 10.6 mg/dl (2.5-4.9); POTASSIUM 4.8 mmol/L (3.5-5.1); SODIUM 141 mmol/L (135-144)
[2018-09-10] MEDS: ALBUTEROL/IPRATROPIUM (NEB) 3 ML AMP HHN ×3 (08:17→19:45)
[2018-09-10] MEDS: SEVELAMER CARBONATE 0.8 GM PKT PO ×3 (08:35→17:59)
[2018-09-10] MEDS: CHOLECALCIFEROL 1,000 UNIT TAB PO (08:38)
[2018-09-10] MEDS: MULTIVIT/CA CARB/B CMPLX/FA TAB PO (08:38)
[2018-09-10] MEDS: FELODIPINE (ER) 5 MG TAB PO (08:39)
[2018-09-10] MEDS: LISINOPRIL 20 MG TAB PO (08:39)
[2018-09-10] MEDS: CALCITRIOL 0.25 MCG CAP PO (08:39)
[2018-09-10 11:44] LABS: HEPATITIS B SURFACE ANTIGEN NEGATIVE (NEGATIVE)
[2018-09-10] MEDS: HEPARIN 1000 UNITS/ML 10 ML INJ CATHETER (16:50)
[2018-09-10] MEDS: EPOETIN 10000 UNITS/1 ML INJ (ESRD) SC (17:00)
[2018-09-11] MEDS: PANTOPRAZOLE (EC) 40 MG TAB PO (06:19)
[2018-09-11] MEDS: ALBUTEROL/IPRATROPIUM (NEB) 3 ML AMP HHN (07:45)
== END 2018-09-11 08:58 | disposition home or self-care (01) ==
LOC: E/R 04:48 → PP2 08:10
DX: J81.1 Chronic pulmonary edema (principal); I12.0 Hypertensive chronic kidney disease with stage 5 chronic kidney disease or end stage renal disease; N18.6 End stage renal disease; Z99.2 Dependence on renal dialysis; D64.9 Anemia, unspecified; M89.8X9 Other specified disorders of bone, unspecified site
CPT/HCPCS: 36415; 71045; 80048; 82803; 83036; 83735; 84100; 84484; 85025; 87081; 87340; 90935; 93005; 94640; 94664; 99217; 99285-25; G0378

== ENCOUNTER 2019-01-10 11:56 | Emergency (ER) | payer MEDICARE, OTHER ==
[2019-01-10 13:09] LABS: ADD MAN DIFF? NO
[2019-01-10 13:14] LABS: WHITE BLOOD COUNT 7.8 10^3/ul (4.8-10.8)
[2019-01-10 13:14] LABS: BASOPHILS % 0.1 % (0.0-2.0); EOSINOPHILS % 0.1 % (0.0-7.0); HEMATOCRIT 39.3 % (42.0-52.0); HEMOGLOBIN 12.1 g/dl (14.0-18.0); LYMPHOCYTES # 1.8 10^3/ul (0.8-2.9); LYMPHOCYTES % 22.4 % (15.0-51.0); MEAN CORPUSCULAR HEMOGLOBIN 24.9 pg (29.0-33.0); MEAN CORPUSCULAR HGB CONC 30.8 g/dl (32.0-37.0); MEAN CORPUSCULAR VOLUME 80.9 fl (82.0-101.0); MEAN PLATELET VOLUME 9.9 fl (7.4-10.4); MONOCYTE # 0.4 10^3/ul (0.3-0.9); MONOCYTES % 5.5 % (0.0-11.0); NEUTROPHIL # 5.6 10^3/ul (1.6-7.5); NEUTROPHILS % 71.6 % (39.0-77.0); PLATELET COUNT 224 10^3/UL (140-415); RED BLOOD COUNT 4.86 10^6/ul (4.70-6.10); RED CELL DISTRIBUTION WIDTH 18.6 % (11.5-14.5)
[2019-01-10 13:32] LABS: ANION GAP 16 (5-13); BLOOD UREA NITROGEN 90 mg/dl (7-20); CALCIUM 9.4 mg/dl (8.4-10.2); CARBON DIOXIDE 18 mmol/L (21-31); CHLORIDE 108 mmol/L (97-110); CREATININE 12.23 mg/dl (0.61-1.24); Estimated GFR 4 mL/min (>60); GLUCOSE 86 mg/dl (70-220); SODIUM 142 mmol/L (135-144)
[2019-01-10 13:36] LABS: POTASSIUM 6.4 mmol/L (3.5-5.1)
[2019-01-10] MEDS: INSULIN REGULAR, HUMAN 100 UNIT/1 ML 3ML VIAL IVP (14:18)
[2019-01-10] MEDS: DEXTROSE 50% 50 ML SYRINGE IV (14:19)
[2019-01-10] MEDS: NA BICARBONATE 8.4% 50 ML SYG IV (14:19)
[2019-01-10] MEDS: CA CHLORIDE 10% 10 ML SYRINGE IV (14:20)
[2019-01-10] MEDS: ALBUTEROL 0.5% (NEB) 2.5 MG/0.5 ML AMP INH (14:35)
[2019-01-10] MEDS ORDERED: ACETAMINOPHEN 325 MG TAB PO (16:00)
[2019-01-10] MEDS ORDERED: ONDANSETRON 4 MG INJ IV (16:00)
[2019-01-10] MEDS ORDERED: AMLODIPINE 10 MG TAB PO (17:00)
[2019-01-10] MEDS ORDERED: LISINOPRIL 20 MG TAB PO (17:00)
[2019-01-10] MEDS ORDERED: SEVELAMER CARBONATE 0.8 GM PKT PO (18:00)
[2019-01-10 19:09] LABS: HEPATITIS B SURFACE ANTIGEN NEGATIVE (NEGATIVE)
[2019-01-10] MEDS: HEPARIN 1000 UNITS/ML 10 ML INJ CATHETER (22:19)
[2019-01-11] MEDS ORDERED: ASPIRIN 81 MG TAB PO (09:00)
== END 2019-01-10 22:25 | disposition left against medical advice (07) ==
LOC: E/R 22:25
DX: R53.1 Weakness (principal); I12.0 Hypertensive chronic kidney disease with stage 5 chronic kidney disease or end stage renal disease; N18.6 End stage renal disease; E87.5 Hyperkalemia; R27.0 Ataxia, unspecified; Z99.2 Dependence on renal dialysis
CPT/HCPCS: 70450; 71045; 80048; 82607; 82962; 85025; 87340; 90935; 93005; 94664; 96374; 96375; 99285-25

== ENCOUNTER 2019-03-02 12:29 | Observation (INO) | payer MEDICARE, OTHER ==
[2019-03-02 13:09] LABS: ADD MAN DIFF? NO
[2019-03-02 13:14] LABS: BASOPHILS % 0.2 % (0.0-2.0); EOSINOPHILS % 0.1 % (0.0-7.0); HEMATOCRIT 36.9 % (42.0-52.0); HEMOGLOBIN 12.1 g/dl (14.0-18.0); LYMPHOCYTES # 1.6 10^3/ul (0.8-2.9); LYMPHOCYTES % 13.9 % (15.0-51.0); MEAN CORPUSCULAR HEMOGLOBIN 28.2 pg (29.0-33.0); MEAN CORPUSCULAR HGB CONC 32.8 g/dl (32.0-37.0); MEAN PLATELET VOLUME 8.5 fl (7.4-10.4); MONOCYTE # 0.8 10^3/ul (0.3-0.9); MONOCYTES % 6.6 % (0.0-11.0); NEUTROPHIL # 9.1 10^3/ul (1.6-7.5); NEUTROPHILS % 78.8 % (39.0-77.0); PLATELET COUNT 255 10^3/UL (140-415); RED BLOOD COUNT 4.29 10^6/ul (4.70-6.10); RED CELL DISTRIBUTION WIDTH 15.8 % (11.5-14.5)
[2019-03-02 13:14] LABS: WHITE BLOOD COUNT 11.5 10^3/ul (4.8-10.8)
[2019-03-02 13:31] LABS: ANION GAP 17 (5-13); BLOOD UREA NITROGEN 73 mg/dl (7-20); CALCIUM 9.3 mg/dl (8.4-10.2); CARBON DIOXIDE 20 mmol/L (21-31); CHLORIDE 95 mmol/L (97-110); CREATININE 11.95 mg/dl (0.61-1.24); Estimated GFR 4 mL/min (>60); GLUCOSE 94 mg/dl (70-220); POTASSIUM 4.4 mmol/L (3.5-5.1); SODIUM 132 mmol/L (135-144)
[2019-03-02 13:45] LABS: INR 0.94; PROTIME 12.7 Sec (11.9-14.9)
[2019-03-02 13:46] LABS: PARTIAL THROMBOPLASTIN TIME 36.7 Sec (23.0-35.0)
[2019-03-02 13:56] LABS: B-TYPE NATRIURETIC PEPTIDE 75800 PG/ML (0-125)
[2019-03-02] MEDS: FUROSEMIDE 40 MG INJ IV (14:01)
[2019-03-02] MEDS: NITROGLYCERIN (SL) 0.4 MG TAB SL (14:17)
[2019-03-02] MEDS ORDERED: ACETAMINOPHEN 325 MG TAB PO ×2 (15:30→17:30)
[2019-03-02] MEDS ORDERED: ONDANSETRON 4 MG INJ IV (15:30)
[2019-03-02] MEDS ORDERED: LABETALOL HCL 20MG INJ (15:45)
[2019-03-02] MEDS: CEFTRIAXONE 1 GM/50 ML (PMX) 50 ML IVPB (15:46)
[2019-03-02] MEDS: LABETALOL HCL 20MG INJ IV (15:52)
[2019-03-02] MEDS: AZITHROMYCIN 500MG/NS (PMX) 250 ML IVPB (16:50)
[2019-03-02] MEDS ORDERED: NACL 0.9% 3 ML SYG IV (17:30)
[2019-03-02] MEDS ORDERED: HYDROCODONE/APAP (5/325) TAB PO (17:30)
[2019-03-02] MEDS: SEVELAMER CARBONATE 0.8 GM PKT PO (18:29)
[2019-03-02 23:04] LABS: HEPATITIS B SURFACE ANTIGEN NEGATIVE (NEGATIVE)
[2019-03-03] MEDS: hydrALAzine 20 MG INJ IV ×2 (00:45→07:11)
[2019-03-03] MEDS: HEPARIN 5,000 UNIT/1 ML VIAL SC ×2 (01:01→08:38)
[2019-03-03 07:04] LABS: ADD MAN DIFF? NO
[2019-03-03 07:12] LABS: BASOPHILS % 0.2 % (0.0-2.0); EOSINOPHILS % 0.2 % (0.0-7.0); HEMATOCRIT 38.7 % (42.0-52.0); HEMOGLOBIN 12.4 g/dl (14.0-18.0); LYMPHOCYTES # 1.1 10^3/ul (0.8-2.9); LYMPHOCYTES % 9.4 % (15.0-51.0); MEAN CORPUSCULAR HEMOGLOBIN 27.7 pg (29.0-33.0); MEAN CORPUSCULAR VOLUME 86.4 fl (82.0-101.0); MEAN PLATELET VOLUME 9.2 fl (7.4-10.4); MONOCYTES % 8.7 % (0.0-11.0); NEUTROPHIL # 9.2 10^3/ul (1.6-7.5); NEUTROPHILS % 81.1 % (39.0-77.0); PLATELET COUNT 288 10^3/UL (140-415); RED BLOOD COUNT 4.48 10^6/ul (4.70-6.10); RED CELL DISTRIBUTION WIDTH 15.8 % (11.5-14.5)
[2019-03-03 07:12] LABS: WHITE BLOOD COUNT 11.4 10^3/ul (4.8-10.8)
[2019-03-03 07:32] LABS: PHOSPHORUS 6.7 mg/dl (2.5-4.9)
[2019-03-03 07:32] LABS: CHOL/HDL RATIO 2.6 RATIO; CHOLESTEROL 151 mg/dl (100-200); HDL CHOLESTEROL 57 mg/dl (30-78); LDL CHOLESTEROL,CALCULATED 78 mg/dl; MAGNESIUM 1.7 mg/dl (1.7-2.5); TRIGLYCERIDES 78 mg/dl (0-149)
[2019-03-03 07:45] LABS: ALANINE AMINOTRANSFERASE 20 IU/L (13-69); ALBUMIN 3.8 g/dl (3.3-4.9); ALBUMIN/GLOBULIN RATIO 1.08; ALKALINE PHOSPHATASE 68 IU/L (42-121); ANION GAP 14 (5-13); ASPARTATE AMINO TRANSFERASE 23 IU/L (15-46); BILIRUBIN,INDIRECT 0.3 mg/dl (0-1.1); BILIRUBIN,TOTAL 0.3 mg/dl (0.2-1.3); BLOOD UREA NITROGEN 49 mg/dl (7-20); CALCIUM 8.9 mg/dl (8.4-10.2); CARBON DIOXIDE 31 mmol/L (21-31); CHLORIDE 94 mmol/L (97-110); CREATININE 7.96 mg/dl (0.61-1.24); Estimated GFR 7 mL/min (>60); GLUCOSE 112 mg/dl (70-220); POTASSIUM 3.7 mmol/L (3.5-5.1); SODIUM 139 mmol/L (135-144); TOTAL PROTEIN 7.3 g/dl (6.1-8.1)
[2019-03-03] MEDS: SEVELAMER CARBONATE 0.8 GM PKT PO (08:06)
[2019-03-03] MEDS: LISINOPRIL 20 MG TAB PO (08:07)
[2019-03-03] MEDS: NIFEdipine (XL) 30 MG TAB PO (10:02)
[2019-03-04] MEDS ORDERED: NIFEdipine (XL) 30 MG TAB PO (09:00)
== END 2019-03-03 11:20 | disposition home or self-care (01) ==
LOC: E/R 12:29 → TEL 15:46
DX: I13.2 Hypertensive heart and chronic kidney disease with heart failure and with stage 5 chronic kidney disease, or end stage renal disease (principal); I50.31 Acute diastolic (congestive) heart failure; N18.6 End stage renal disease; Z99.2 Dependence on renal dialysis; D63.8 Anemia in other chronic diseases classified elsewhere
CPT/HCPCS: 71045; 80048; 80053; 80061; 83735; 83880; 84100; 84484; 85025; 85610; 85730; 87340; 90935; 93005; 93306; 96374; 99217; 99285-25

== ENCOUNTER 2019-03-14 06:37 | Emergency (ER) | payer MEDICARE, OTHER ==
[2019-03-14 07:19] LABS: ADD MAN DIFF? NO
[2019-03-14 07:23] LABS: WHITE BLOOD COUNT 11.6 10^3/ul (4.8-10.8)
[2019-03-14 07:23] LABS: BASOPHILS % 0.3 % (0.0-2.0); EOSINOPHILS # 0.1 10^3/ul (0.0-0.5); EOSINOPHILS % 0.4 % (0.0-7.0); HEMATOCRIT 37.2 % (42.0-52.0); HEMOGLOBIN 11.8 g/dl (14.0-18.0); LYMPHOCYTES # 1.5 10^3/ul (0.8-2.9); LYMPHOCYTES % 12.5 % (15.0-51.0); MEAN CORPUSCULAR HEMOGLOBIN 28.7 pg (29.0-33.0); MEAN CORPUSCULAR HGB CONC 31.7 g/dl (32.0-37.0); MEAN CORPUSCULAR VOLUME 90.5 fl (82.0-101.0); MEAN PLATELET VOLUME 9.5 fl (7.4-10.4); MONOCYTE # 0.8 10^3/ul (0.3-0.9); NEUTROPHIL # 9.2 10^3/ul (1.6-7.5); NEUTROPHILS % 79.4 % (39.0-77.0); PLATELET COUNT 274 10^3/UL (140-415); RED BLOOD COUNT 4.11 10^6/ul (4.70-6.10); RED CELL DISTRIBUTION WIDTH 14.6 % (11.5-14.5)
[2019-03-14 07:39] LABS: ANION GAP 18 (5-13); BLOOD UREA NITROGEN 85 mg/dl (7-20); CALCIUM 9.4 mg/dl (8.4-10.2); CARBON DIOXIDE 16 mmol/L (21-31); CHLORIDE 104 mmol/L (97-110); GLUCOSE 88 mg/dl (70-220); POTASSIUM 4.9 mmol/L (3.5-5.1); SODIUM 138 mmol/L (135-144)
[2019-03-14 07:47] LABS: CREATININE 16.78 mg/dl (0.61-1.24); Estimated GFR 3 mL/min (>60)
== END 2019-03-14 08:18 | disposition home or self-care (01) ==
LOC: E/R 06:37
DX: I12.0 Hypertensive chronic kidney disease with stage 5 chronic kidney disease or end stage renal disease (principal); N18.6 End stage renal disease; D50.0 Iron deficiency anemia secondary to blood loss (chronic); I48.91 Unspecified atrial fibrillation
CPT/HCPCS: 71045; 80048; 85025; 93005; 99284-25

== ENCOUNTER 2019-03-21 16:41 | Emergency (ER) | payer MEDICARE, OTHER ==
[2019-03-21] MEDS: hydrALAzine 20 MG INJ IV (17:25)
[2019-03-21] MEDS: NITROGLYCERIN (SL) 0.4 MG TAB SL (17:26)
[2019-03-21 17:40] LABS: ADD MAN DIFF? NO
[2019-03-21 17:56] LABS: WHITE BLOOD COUNT 7.7 10^3/ul (4.8-10.8)
[2019-03-21 17:56] LABS: BASOPHILS % 0.3 % (0.0-2.0); EOSINOPHILS # 0.1 10^3/ul (0.0-0.5); EOSINOPHILS % 0.7 % (0.0-7.0); HEMATOCRIT 36.2 % (42.0-52.0); HEMOGLOBIN 11.4 g/dl (14.0-18.0); LYMPHOCYTES # 1.3 10^3/ul (0.8-2.9); LYMPHOCYTES % 17.3 % (15.0-51.0); MEAN CORPUSCULAR HEMOGLOBIN 28.4 pg (29.0-33.0); MEAN CORPUSCULAR HGB CONC 31.5 g/dl (32.0-37.0); MEAN PLATELET VOLUME 9.4 fl (7.4-10.4); MONOCYTE # 0.6 10^3/ul (0.3-0.9); MONOCYTES % 7.3 % (0.0-11.0); NEUTROPHIL # 5.7 10^3/ul (1.6-7.5); NEUTROPHILS % 74.1 % (39.0-77.0); PLATELET COUNT 234 10^3/UL (140-415); RED BLOOD COUNT 4.02 10^6/ul (4.70-6.10); RED CELL DISTRIBUTION WIDTH 14.2 % (11.5-14.5)
[2019-03-21 18:03] LABS: ANION GAP 15 (5-13); BLOOD UREA NITROGEN 83 mg/dl (7-20); CALCIUM 8.1 mg/dl (8.4-10.2); CARBON DIOXIDE 20 mmol/L (21-31); CHLORIDE 102 mmol/L (97-110); GLUCOSE 92 mg/dl (70-220); POTASSIUM 4.8 mmol/L (3.5-5.1); SODIUM 137 mmol/L (135-144)
[2019-03-21 18:09] LABS: CREATININE 15.49 mg/dl (0.61-1.24); Estimated GFR 3 mL/min (>60)
[2019-03-21 18:14] LABS: TROPONIN-I 0.067 ng/ml (0.000-0.120)
[2019-03-21] MEDS: LABETALOL HCL 20MG INJ IV (18:41)
== END 2019-03-21 19:18 | disposition home or self-care (01) ==
LOC: E/R 16:41
DX: I50.9 Heart failure, unspecified (principal); N18.6 End stage renal disease; I12.0 Hypertensive chronic kidney disease with stage 5 chronic kidney disease or end stage renal disease; Z99.2 Dependence on renal dialysis
CPT/HCPCS: 36415; 71045; 80048; 84484; 85025; 93005; 96374; 96375; 99285-25

== ENCOUNTER 2019-03-24 03:38 | Emergency (ER) | payer MEDICARE, OTHER ==
[2019-03-24 05:34] LABS: ANION GAP 17 (5-13); BLOOD UREA NITROGEN 70 mg/dl (7-20); CALCIUM 8.7 mg/dl (8.4-10.2); CARBON DIOXIDE 20 mmol/L (21-31); CHLORIDE 101 mmol/L (97-110); GLUCOSE 87 mg/dl (70-220); POTASSIUM 4.9 mmol/L (3.5-5.1); SODIUM 138 mmol/L (135-144)
[2019-03-24 05:44] LABS: CREATININE 15.07 mg/dl (0.61-1.24); Estimated GFR 3 mL/min (>60)
[2019-03-24 05:51] LABS: TROPONIN-I 0.171 ng/ml (0.000-0.120)
== END 2019-03-24 06:03 | disposition left against medical advice (07) ==
LOC: E/R 03:38
DX: R06.02 Shortness of breath (principal); I12.0 Hypertensive chronic kidney disease with stage 5 chronic kidney disease or end stage renal disease; N18.6 End stage renal disease; Z79.01 Long term (current) use of anticoagulants; Z99.2 Dependence on renal dialysis
CPT/HCPCS: 36415; 71045; 80048; 84484; 93005; 99285-25